=== PATIENT | male | born 1965 | race Caucasian/White ===

== ENCOUNTER 2024-02-29 12:23 | Emergency (ER) | payer BC ==
[2024-02-29] MEDS: Bacitracin Oint 1 GM U/D Packet TOP ONE (14:47)
== END 2024-02-29 14:50 | disposition home or self-care (01) ==
LOC: JP.ED 12:23
DX: S66.901A Unspecified injury of unspecified muscle, fascia and tendon at wrist and hand level, right hand, initial encounter (principal); S61.011A Laceration without foreign body of right thumb without damage to nail, initial encounter; Z88.0 Allergy status to penicillin; Z91.018 Allergy to other foods; W20.8XXA Other cause of strike by thrown, projected or falling object, initial encounter
CPT/HCPCS: 73140-26-F5; 73140-F5; 99283